=== PATIENT | male | born 1970 | race Caucasian/White ===

== ENCOUNTER 2024-07-02 08:14 | Emergency (ER) | payer OTHER ==
[~2024-07-02] VITALS: Ht 162.6 cm; Wt 75.0 kg
[2024-07-02 08:16] VITALS: O2SAT 98
[2024-07-02] MEDS ORDERED: TETANUS AND DIPHTHERIA TOX/PF 0.5ML SYR (ADULT) IM ONE (09:45)
[2024-07-02 09:51] VITALS: TEMP 97.9
[2024-07-02] MEDS: ACETAMINOPHEN 325MG TABLET PO ONE (09:51)
[2024-07-02] MEDS: IBUPROFEN 600MG TABLET PO ONE (09:51)
[2024-07-02] MEDS: TETANUS, DIPHTHERIA, PERTUSSIS VAC/PF 0.5ML (>10YR OLD) IM ONE (10:34)
[2024-07-02] MEDS: LIDOCAINE HCL 1% 20ML VIAL INFIL ONE (10:38)
[2024-07-02 12:08] VITALS: BP 120/78; PULSE 74; RESP 16; O2SAT 99
[2024-07-02] MEDS ORDERED: IBUP-1523 MT (12:21)
[2024-07-02] MEDS ORDERED: TOPUD MT (12:21)
[2024-07-02] MEDS ORDERED: CEPH500C2 MT (12:21)
== END 2024-07-02 12:30 | disposition home or self-care (01) ==
LOC: ER 09:28
DX: S61.411A Laceration without foreign body of right hand, initial encounter (principal); I10 Essential (primary) hypertension; V98.8XXA Other specified transport accidents, initial encounter; Y93.89 Activity, other specified; Y92.89 Other specified places as the place of occurrence of the external cause; Y99.8 Other external cause status
CPT/HCPCS: 73130; 90715; 12005; 90471; 99283; J3490; Z7610 ×2; 90714